=== PATIENT | female | born 1955 | race Caucasian/White ===

== ENCOUNTER 2017-01-22 11:32 | Inpatient (IN) ==
--- NOTE | 2017-01-19 15:06 | Discharge Summary ---
<Debby Thompson E - Last Filed: 01/19/17 15:04> Date of Encounter: 01/19/17 - Discharge Diagnosis (1) Arthritis of knee, right Priority: Primary Status: Chronic (2) Rheumatoid arthritis Status: Chronic Qualifiers: Rheumatoid arthritis location: unspecified site Rheumatoid factor presence : unspecified presence Qualified Code(s): M06.9 - Rheumatoid arthritis, unspecified (3) Hypertension Priority: Secondary Status: Chronic Qualifiers: Hypertension type: essential hypertension Qualified Code(s): I10 - Essential (primary) hypertension (4) Vertigo Priority: Secondary Status: Chronic - Discharge Medications Prescriptions: Alprazolam [Xanax 1 MG Tablet] 1 mg PO DAILY #20 tablet Home Medications: Aspirin Enteric Coated [Aspirin EC] 325 mg PO DAILY #21 tablet. 01/21/17 [Rx] OxyCODONE Immed Rel [Roxicodone 5 MG] 5 - 10 mg PO Q6HR PRN #40 tablet 01/21/17 [Rx] Cyanocobalamin (B-12) [Vitamin B12] 1,000 mcg IM Q2W 01/22/17 [History] Lisinopril/Hydrochlorothiazide [Zestoretic 10-12.5 mg Tablet] 1 each PO DAILY [History] Loratadine/Pseudophed (12 HR) [Claritin D (12HR)] 1 each PO DAILY 01/22/17 [ History] Meclizine HCl [Verticalm] 25 mg PO DAILY 01/22/17 [History] Alprazolam [Xanax 1 MG Tablet] 1 mg PO DAILY #20 tablet 01/24/17 [Rx] Allergies/Adverse Reactions: Allergies Amoxicillin Adverse Reaction (Verified 01/22/17 13:07) hives,itching Primary care physician: JAMARI Sol - Patient Status Disposition: Transfer Inpatient Rehab Fac Condition: Good - Discharge Instructions Follow Up With: Harris Landa MD [Partnered Physician] - 02/20/17 9:20 am Mitzi Fournier PAC [Physician Science Teacher] - 02/01/17 11:15 am Taylor Pat CNP [Primary Care Provider] - Additional Instructions: Discharge Instructions: Total Knee Replacement Please call [facility] ([phone]), your Primary Care Physician, or report to the Emergency Room if you have any of the following symptoms: Nausea, vomiting, fever greater that 101.5, swelling, chest pain, shortness of breath, increased pain/redness/drainage/odor for your incision site, numbness/ tingling, or any other concerning symptoms. ACTIVITY:Weight-bearing as tolerated. You may progress off support (cruthches or walker) as tolerated. MEDICATIONS: Upon discharge resume your home medications. Take all the medications as prescribed. Take a stool softener if taking narcotic pain medications. Stool softeners are only effective if you drink enough fluids. Drink 6-8 glass of water or fluids a day, unless this is not allowed for another health problem. Despite using stool softeners, if you haven't had a bowel movement in 3 days, please switch to a gentle laxative. Gentle laxatives are sold over the counter. You should have a bowel movement within 24 hours, if not call the office. You will be discharged from the hospital with a prescription for pain medication. You are encouraged to decrease the use of narcotic pain medication as tolerated. Should you require a refill, please call the office. [facility] prescribes narcotic pain medication for only 4-6 weeks after surgery. If you require pain medication beyond this time periord, you may be referred to your Primary Care Physician or to the Pain Clinic for further evaluation. Plan ahead for refills on pain medication as many narcotics either need to be picked up at the office or mailed. It is best to call 48-72 hours in advance of needing a prescription refill so you don't run out of medication. To help control the post-operative pain, you may take NSAIDs (Aleve,Advil, Motrin, ibuprofen, naprosyn) or Tylenol as prescribed on the bottle in addition to the pain medication. ANTICOAGULATION (blood thinners): Continue your Aspirin, Lovenox or Coumadin as prescribed to help prevent a blood clot in the leg or in the lungs. As long as your incision remains dry and you tolerate the NSAIDs (Aleve, Advil, Motrin, ibuprofen, naprosyn), it is OK to use the NSAIDS while you are taking your anticoagulation medication. Should your incision start to drain, stop the NSAID and contact our office. Common symptoms of blood clot in the legs include: localized pain, swelling, calf tenderness, redness or discoloration of the skin. Blood clot in the lung symptoms include: shortness of breath, rapid pulse, sweating, and chest pain that worsens with deep breathing, coughing up blood, lightheadedness, feelings of anxiety. If you experience any of these symptoms notify your physician immediately, go to the emergency room, or if having trouble breathing, call 911. WOUND CARE: Leave the dressing on for 7 days. You may change the dressing if it becomes saturated greater than 50%. You can shower but not a tub bath or submerge your incision in water. Wash your hands with antibacterial soap, rinse and dry prior to any wound care. If you have tim the visiting nurse or rehab facility can remove the stapes 10-14 days after surgery [address] place steri- strips across the wound. Leave the steri-strips in place until they fall off on their won. You may let water from the shower run on top of the steri-stirips. If you do not have a visiting nurse or rehab facility, you will need to return to the office at 10-14 days for the tim to be removed. FOLLOW-UP: Please follow up with your surgeon in the orthopedic clinic in 4 weeks from the day of surgery. If you have tim that need to be removed, you will need to come back to the office in 10-14 days from the day of surgery. - Hospital Course Hospital course: Ms. Knox is a 61 year old female - Time Spent with Patient Total time spent providing and/or coordinating discharge services: <Mitzi Fournier - Last Filed: 01/21/17 21:43> Date of Encounter: 01/21/17 Primary care physician: JAMARI Sol - Hospital Course Hospital course: Ms. Knox is a 61 year old female - Time Spent with Patient Total time spent providing and/or coordinating discharge services: <Harris Landa - Last Filed: 01/24/17 06:25> Date of Encounter: 01/24/17 Time of Encounter: 06:23 - Discharge Diagnosis (1) Arthritis of knee, right Priority: Primary Status: Acute (2) Rheumatoid arthritis Priority: Primary Status: Chronic Qualifiers: Rheumatoid arthritis location: unspecified site Rheumatoid factor presence : unspecified presence Qualified Code(s): M06.9 - Rheumatoid arthritis, unspecified (3) Hypertension Priority: Secondary Status: Chronic Qualifiers: Hypertension type: essential hypertension Qualified Code(s): I10 - Essential (primary) hypertension (4) Vertigo Priority: Secondary Status: Chronic Primary care physician: JAMARI Sol - Patient Status Functional capacity at discharge: uses cane/walker Overall status at discharge: patient is back to baseline - Hospital Course Hospital course: Ms. Knox is a 61 year old female patient doing well received antibiotics and PT asa dvt prophylaxis - Time Spent with Patient Total time spent providing and/or coordinating discharge services:
--- NOTE | 2017-01-22 11:37 | History & Physical Report ---
Date of Encounter: 01/22/17 Time of Encounter: 11:36 24 Hour HP Update - Instructions Instructions: If the History and Physical is less than 30 days old and was completed prior to A.M. admission and or procedure and has NOT been updated on calendar day of procedure please complete this update prior to performing procedure. - Update Patient reports changes in Medical Condition: No Changes in examination, assessment, or condition: No Changes in Medication: No Preop tests/diagnostics Reviewed: Yes Surgery Remains Indicated: Yes Consent for Planned Operative Procedure(s) Verified: Yes - Pre-Operative Checklist Preoperative Checklist Indicated: No Prophylactic Antibiotic Ordered: Yes Is VTE Prophylaxis Indicated?: Yes
[2017-01-22] MEDS ORDERED: CeFAZolin Pre 2,000 MG/100 ML 2,000 MG/100 ML BAG IVPB ONE (11:56)
[2017-01-22] MEDS ORDERED: Ringers Solution, Lactated 1,000 ML IVC SCH ×2 (12:00→14:00)
[2017-01-22] MEDS ORDERED: Famotidine 20 MG/2 ML VIAL IVP ONE (12:22)
[2017-01-22] MEDS ORDERED: Dexamethasone 4 MG/ML VIAL ONE (12:46)
[2017-01-22] MEDS ORDERED: Ondansetron 4 MG/2 ML VIAL ONE (12:46)
[2017-01-22] MEDS ORDERED: Lidocaine -MPF 2% 2 ML VIAL ONE (12:46)
[2017-01-22] MEDS ORDERED: *HR* Succinylcholine 200 MG/10 ML VIAL IVP ONE (12:46)
[2017-01-22] MEDS ORDERED: *HR* Midazolam HCl 2 MG/2 ML VIAL ONE (12:47)
[2017-01-22] MEDS ORDERED: *HR* FentaNYL (PF) 100 MCG/2 ML VIAL ONE (12:47)
[2017-01-22] MEDS ORDERED: *HR* Propofol 200 MG/20 ML VIAL IVP ONE (12:47)
--- NOTE | 2017-01-22 13:02 | Anesthesia Evaluation PreOp ---
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 01/21/17 [Rx] OxyCODONE Immed Rel [Roxicodone 5 MG] 5 - 10 mg PO Q6HR PRN #40 tablet 01/21/17 [Rx] Allergies Amoxicillin Adverse Reaction (Unverified 01/16/17 15:42) See Comments - Meds/Allergy Pre-op Review Medications Reviewed: Yes Allergies Reviewed: Yes Beta Blockers on Current Med List: No Anesthesia Results - Labs Laboratory Tests 01/16/17 01/16/17 15:43 15:43 Hgb 14.5 Hct 43.0 Plt Count 281 Sodium 138 Potassium 3.7 BUN 14 Creatinine 0.74 - Imaging EKG: report reviewed (SR) Anesthesia Exam O2 Sat Height 1.56 m Height 1.56 m Height 1.56 m Height 1.56 m Weight 66.678 kg Weight 66.678 kg Weight 66.678 kg Weight 66.678 kg O2 Sat by Pulse Oximetry 95 O2 Sat by Pulse Oximetry 95 O2 Sat by Pulse Oximetry 95 Vital Signs Temp Pulse Resp BP Pulse Ox 98.8 F 91 18 159/108 95 01/22/17 11:57 01/22/17 11:57 01/22/17 11:57 01/22/17 11:57 01/22/17 11:57 Height: 5'3 Weight: 148 lbs NPO (# of Hours): MN Pain Scale: 0 - HEENT Pupil (Motor): Pupils equal, EOMI Mallampati: II Teeth: Normal Oral Opening: Greater than 3 - COOK HOUSE SUPERVISOR LOC: Oriented [employer] HOUSE SUPERVISOR Motor: Normal RUE, Normal LUE, Normal RLE, Normal LLE, Normal Face [employer] HOUSE SUPERVISOR Sensory: Normal: RUE, LUE, RLE, LLE, Face - Cardiac Rhythm: Regular Murmur: None JVD: No Carotid Bruit: No - Pulmonary Breath Sounds: bilateral Clear Respiratory Effort: Symmetrical Anesthesia Assess/Plan ASA Score: 2 Modified Austin Scale for Level of Consciousness: Cooperative, oriented, and tranquil Anesthetic Plan: General, Regional Monitoring Plan: Standard Monitors Recovery Plan: PACU (Discussed GA and RA, agrees to proceed)
[2017-01-22] MEDS ORDERED: ROPIVACAINE HCL/PF 0.5% 30 ML VIAL ONE ×2 (13:28→13:47)
[2017-01-22] MEDS ORDERED: Tetracaine/PF 20 MG/2 ML AMPUL SPINA ONE (13:28)
[2017-01-22] MEDS ORDERED: Ondansetron 4 MG/2 ML VIAL IVP ONE (14:00)
[2017-01-22] MEDS ORDERED: Dexamethasone 4 MG/ML VIAL IVP ONE (14:00)
[2017-01-22] MEDS ORDERED: *HR* HYDROmorphone (PF) 1 MG/ML SYRINGE IVP PRN ×2 (14:00→15:59)
--- NOTE | 2017-01-22 14:00 | Anesthesia Procedures ---
Date of Encounter: 01/22/17 Time of Encounter: 13:58 Procedures: Anesthesia - Nerve Block Procedure Date: 01/22/17 Time: 13:58 Allergies/Adv Reactions: amoxicillin Pre-op Diagnosis: right knee arthritis Surgical Procedure: Right total knee arthroplasty Checklist: Correct Patient Identifier, Correct procedure, History checked Correct side: Right Blood Thinner: No Monitor Applied: EKG, BP, Pulse Oximetry Supplemental Oxygen via Nasal Cannula (L/min): 2 Sedation: Versed (mg): 2 Sedation: Fentanyl (mcg): 100 Indication: Post Op Analgesia Pre-op Neuro Deficits: No Block Type: Femoral, Other (IPAC) Catheter placed: No Sterile Technique: Yes Ultrasound used: Yes Anatomy identified: Yes Visual spread of Local: Yes Neuro Stimulation: Yes Nerve Stimulator Range: 0.2 - 0.4 mA Blood on Needle Aspiration: No Smooth Injection of Local: Yes Pain with Injection of Local: No Prep: Chlorhexadine Needle: 22 x 50 mm Stimuplex Local: 0.25% Bupivicaine w/Clonidine 20 mcg/cc, Ropivacaine Volume (cc): 30 Number of Attempts: 1 Complications: None/effective block Vitals: Vital Signs Temperature 98.8 F 01/22/17 11:57 Pulse Rate 91 01/22/17 11:57 Respiratory Rate 18 01/22/17 11:57 Blood Pressure 159/108 01/22/17 11:57 O2 Sat by Pulse Oximetry 95 01/22/17 11:57 Temperature 98.8 F 01/22/17 12:10 Pulse Rate 62 01/22/17 13:56 Respiratory Rate 16 01/22/17 13:56 Blood Pressure 143/90 01/22/17 13:56 O2 Sat by Pulse Oximetry 100 01/22/17 13:56 Comments: Femoral block with ropivicaine 0.5% 30ml, IPAC 20ml bupivicaine 0.25% with clonidine.
--- NOTE | 2017-01-22 14:58 | Orthopedic Operative Note ---
Date of procedure: 01/22/17 Pre-op diagnosis: Right knee arthritis Post-op diagnosis: same Procedure: Procedure: Right Total knee replacement Estimated blood loss: 200 cc Hardware: Arthrex Femur: 3 Tibia: 3 PS insert: 12 Patella: 34 Exam Under anesthesia: Full flexion full extension no instability Procedural Notes: Grade 3 arthritic changes medial compartment patella femoral joint. Operative procedure: The patient was brought to the operating room and placed on the operating room table. After general anesthesia was administered the operative knee was examined. Findings were noted in the exam under anesthesia. The operative extremity was prepped and draped in sterile surgical fashion. The patient received IV antibiotics prior to skin incision. A standard midline incision was made centered over the patella. The incision was made through the skin and subcutaneous tissue. A medial parapatellar tendon approach was performed. Care was taken to preserve tissue along the medial aspect of the patella. And to protect the patella tendon. The deep MCL was released off the medial tibia. The infra patella fat pad was excised. Knee was brought into flexion. Patient noted to have grade 3 arthritic changes medial compartment patellofemoral joint. The entry hole was made for the intramedullary femoral guide. The guide was seated in 6 degrees of valgus. Anterior cut was made followed by the distal cut. The ACL the PCL the medial and the lateral menisci were excised. The tibia was subluxed forward. The entry hole was made for the intramedullary tibial guide. Guide was seated to resect 2 mm off the more abnormal side. The knee was brought into flexion the distal femur was sized to a 3. The femoral guide was seated, the anterior cut was made followed by the posterior condylar cut, followed by the chamfer cuts. The finishing guide was seated the box cut was made and the lug holes were drilled. The tibia was sized to a 3, the tibial tray was seated and prepared with the large drill followed by the fin cutter. Trial reduction revealed full extension no varus valgus instability with the appropriate 12 PS Ondina. The patella was everted and cut was made at the level of the insertion of the quadriceps and patella tendon. The patella 34 was sized the guide was seated and the lug holes are drilled. Trial reduction revealed excellent patella tracking. All trial components were removed all bony surfaces were irrigated. The tibia was cemented first followed by the femur. The 12 PS Ondina was seated and the knee was brought into full extension. The patella was cemented and held in place with the patellar holding clamp. After the cement had hardened, the knee sat for 2 minutes with a Betadine saline solution. The knee was then irrigated out with 2 L of pulse irrigation. The extensor mechanism was closed with #2 FiberWire suture and #2 PDS suture. The subcutaneous tissue was then irrigated and closed deep with #1 PDS suture superficially with 0 PDS suture and skin was closed with skin tim. The patient was then placed in a sterile dressing and a postoperative brace extubated and transferred to recovery room in stable condition. Anesthesia: ALBERTA Surgeon: Harris Landa Customs Officer: Mitzi Fournier Condition: stable Disposition: PACU
[2017-01-22] MEDS ORDERED: Ketorolac 30 MG/ML VIAL ONE (15:04)
[2017-01-22] MEDS ORDERED: *HR* HYDROmorphone 2 MG/ML SYRINGE ONE (15:22)
[2017-01-22 15:57] LABS: Hematocrit 36.1 % (35.3-44.9)
[2017-01-22] MEDS ORDERED: Ondansetron 4 MG/2 ML VIAL IVP PRN (15:59)
[2017-01-22] MEDS ORDERED: Temazepam 15 MG CAPSULE PO PRN (15:59)
[2017-01-22] MEDS ORDERED: MOM Conc 10 ML UD.LIQ PO PRN (15:59)
[2017-01-22] MEDS ORDERED: Sennosides 8.6 MG TABLET PO PRN (15:59)
[2017-01-22] MEDS ORDERED: *HR* OxyCODONE Immed Rel 5 MG TABLET PO PRN (15:59)
[2017-01-22] MEDS ORDERED: Acetaminophen 325 MG TABLET PO PRN (15:59)
[2017-01-22] MEDS ORDERED: Naloxone 0.4 MG/ML INJ IVP PRN (15:59)
[2017-01-22] MEDS ORDERED: Cyanocobalamin (B-12) 1,000 MCG/ML VIAL IM SCH (15:59)
[2017-01-22 16:02] LABS: Hemoglobin 11.8 g/dL (11.5-15.4)
[2017-01-22] MEDS: *HR* Enoxaparin 30 MG/0.3 ML SYRINGE SQ SCH (17:39)
[2017-01-22] MEDS ORDERED: *HR* Enoxaparin 30 MG/0.3 ML SYRINGE SQ SCH (18:00)
--- NOTE | 2017-01-22 19:06 | Anesthesia Evaluation Post Op ---
Date of Encounter: 01/22/17 Time of Encounter: 17:00 - Vital Signs Vital Signs: Vital Signs/O2 Sat/Glucose, Most Current Temp Pulse Resp BP Pulse Ox 01/22/17 17:27 97.9 F 61 12 129/83 96 01/22/17 17:00 59 12 128/79 100 01/22/17 16:12 97.5 F L 56 12 114/71 98 01/22/17 15:57 97.3 F L 56 14 115/78 98 01/22/17 15:47 59 14 111/85 99 01/22/17 15:37 65 14 122/76 99 01/22/17 15:27 97.0 F L 65 20 106/69 100 - Lungs Lungs: Clear Ascult./Percussion - Airway Airway: Non-obstructed - Cardiovascular Regular Rate - Mental Status Mental Status: Alert & Oriented, Answers Appropriately - Pain Pain Scale: 0 - Nausea Vomiting Nausea Vomiting: Not Present - Hydration Hydration: Ice chips - Discharge PostOp Status: Transfer Patient to floor
[2017-01-22] MEDS: *HR* OxyCODONE Immed Rel 5 MG TABLET PO PRN (20:20)
[2017-01-22] MEDS: ceFAZolin 2,000 MG in D5% in Water 100 ML IVPB SCH ×2 (21:09→23:33)
[2017-01-22] MEDS: Ringers Solution, Lactated 1,000 ML IVC SCH (21:28)
[2017-01-23] MEDS: *HR* OxyCODONE Immed Rel 5 MG TABLET PO PRN ×4 (03:59→21:09)
[2017-01-23] MEDS: *HR* Enoxaparin 30 MG/0.3 ML SYRINGE SQ SCH ×2 (05:23→16:02)
--- NOTE | 2017-01-23 06:52 | Orthopedics Progress Note ---
Date of Encounter: 01/23/17 Time of Encounter: 06:52 - Assessment and Plan (1) Arthritis of knee, right Current Visit: Yes Status: Acute (2) Rheumatoid arthritis Current Visit: Yes Status: Chronic Qualifiers: Rheumatoid arthritis location: unspecified site Rheumatoid factor presence : unspecified presence Qualified Code(s): M06.9 - Rheumatoid arthritis, unspecified (3) Hypertension Current Visit: Yes Status: Chronic Qualifiers: Hypertension type: essential hypertension Qualified Code(s): I10 - Essential (primary) hypertension (4) Vertigo Current Visit: Yes Status: Chronic Subjective Interval history: Patient was seen this morning doing well without complaints. Afebrile vital signs stable. Operative extremity: Neurovascularly intact Dressing clean dry and intact Calves nontender Assessment and plan: Continue with postoperative care Hematocrit 36 Objective Vital signs: Vital Signs Temp Pulse Resp BP Pulse Ox 01/23/17 06:37 98.7 F 87 18 124/77 94 01/23/17 04:00 98.0 F 65 18 134/83 98 01/23/17 00:00 97.8 F 61 16 121/81 97 01/22/17 20:00 98.0 F 63 18 125/80 97 01/22/17 17:27 97.9 F 61 12 129/83 96 01/22/17 17:00 59 12 128/79 100 01/22/17 16:12 97.5 F L 56 12 114/71 98 01/22/17 15:57 97.3 F L 56 14 115/78 98 01/22/17 15:47 59 14 111/85 99 01/22/17 15:37 65 14 122/76 99 01/22/17 15:27 97.0 F L 65 20 106/69 100 01/22/17 13:56 62 16 143/90 100 01/22/17 13:42 79 16 179/107 100 01/22/17 12:10 98.8 F 91 18 159/108 95 01/22/17 12:06 98.8 F 91 18 159/108 95 01/22/17 11:57 98.8 F 91 18 159/108 95 Intake and Output 01/22/17 01/22/17 01/23/17 15:59 23:59 07:59 Intake Total 400 / 400 Output Total 100 / 100 400 / 400 Balance -100 / -100 400 / 400 -400 / -400 Intake: IV Fluids 100 / 100 Ancef 2,000 MG In 100 / 100 Dextrose 5% 100 ML @ 200 mls/hr IVPB Q8HR [facility] Rx#: [id number] Oral 300 / 300 Output: Urine 400 / 400 Estimated Blood Loss 100 / 100 Other: Weight 66.678 kg - Labs CBC & BMP: 01/22/17 15:44 - VTE Documentation of Mechanical Device: Venous foot pump, device Consult Discharge Plan - Plan Referrals: Taylor Pat PRODUCT DEVELOPMENT CHEMIST [Primary Care Provider] -
[2017-01-23 07:04] LABS: Hematocrit 34.2 % (35.3-44.9); Hemoglobin 11.5 g/dL (11.5-15.4)
[2017-01-23 07:21] LABS: BUN/Creatinine Ratio 18 (6-26); Blood Urea Nitrogen 13 mg/dL (7-20); Calcium 8.9 mg/dL (8.6-10.8); Carbon Dioxide 22 mEq/L (19-29); Chloride 105 mEq/L (98-109); Glucose 128 mg/dL (70-99); Osmolality,Calculated 286 (280-300); Potassium 3.6 mEq/L (3.5-4.5); Sodium 137 mEq/L (136-145); eGFR For African Americans > 60 (> 60); eGFR For Non-African Americans > 60 (> 60)
[2017-01-23] MEDS: Loratadine/Pseudophed (12 HR) 1 EACH TABLET PO SCH (08:52)
[2017-01-23] MEDS: ALPRAZolam 1 MG TABLET PO SCH (08:52)
[2017-01-23] MEDS: Ringers Solution, Lactated 1,000 ML IVC SCH (08:53)
[2017-01-24] MEDS: *HR* OxyCODONE Immed Rel 5 MG TABLET PO PRN (04:07)
[2017-01-24] MEDS: *HR* Enoxaparin 30 MG/0.3 ML SYRINGE SQ SCH (05:09)
--- NOTE | 2017-01-24 06:25 | Orthopedics Progress Note ---
Date of Encounter: 01/24/17 Time of Encounter: 06:25 - Assessment and Plan (1) Arthritis of knee, right Current Visit: Yes Status: Acute (2) Rheumatoid arthritis Current Visit: Yes Status: Chronic Qualifiers: Rheumatoid arthritis location: unspecified site Rheumatoid factor presence : unspecified presence Qualified Code(s): M06.9 - Rheumatoid arthritis, unspecified (3) Hypertension Current Visit: Yes Status: Chronic Qualifiers: Hypertension type: essential hypertension Qualified Code(s): I10 - Essential (primary) hypertension (4) Vertigo Current Visit: Yes Status: Chronic Subjective Interval history: Patient was seen this morning doing well without complaints. Afebrile vital signs stable. Operative extremity: Neurovascularly intact Dressing clean dry and intact Calves nontender Assessment and plan: Continue with postoperative care Hematocrit 34 dc today Objective Vital signs: Vital Signs Temp Pulse Resp BP Pulse Ox 01/24/17 04:31 99.3 F 102 16 160/96 97 01/24/17 00:31 99.5 F 103 17 152/93 95 01/23/17 19:58 100.3 F H 112 16 154/83 96 01/23/17 15:49 100.0 F H 90 18 151/89 98 01/23/17 10:44 98.2 F 91 18 136/82 94 01/23/17 07:31 94 01/23/17 06:37 98.7 F 87 18 124/77 94 Intake and Output 01/23/17 01/23/17 01/24/17 15:59 23:59 07:59 Intake Total 720 / 720 Output Total 700 / 700 400 / 400 400 / 400 Balance 20 / 20 -400 / -400 -400 / -400 Intake: Oral 720 / 720 Output: Urine 700 / 700 400 / 400 400 / 400 Other: Meal Lunch Percent of Meal Consumed 100% - Labs CBC & BMP: 01/23/17 06:18 01/23/17 06:18 Labs: Abnormal lab results Hct 34.2 % (35.3-44.9) L 01/23/17 06:18 Glucose 128 mg/dL (70-99) H 01/23/17 06:18 - VTE Documentation of Mechanical Device: Venous foot pump, device Consult Discharge Plan - Plan Additional Instructions: Discharge Instructions: Total Knee Replacement Please call [facility] ([phone]), your Primary Care Physician, or report to the Emergency Room if you have any of the following symptoms: Nausea, vomiting, fever greater that 101.5, swelling, chest pain, shortness of breath, increased pain/redness/drainage/odor for your incision site, numbness/ tingling, or any other concerning symptoms. ACTIVITY:Weight-bearing as tolerated. You may progress off support (cruthches or walker) as tolerated. MEDICATIONS: Upon discharge resume your home medications. Take all the medications as prescribed. Take a stool softener if taking narcotic pain medications. Stool softeners are only effective if you drink enough fluids. Drink 6-8 glass of water or fluids a day, unless this is not allowed for another health problem. Despite using stool softeners, if you haven't had a bowel movement in 3 days, please switch to a gentle laxative. Gentle laxatives are sold over the counter. You should have a bowel movement within 24 hours, if not call the office. You will be discharged from the hospital with a prescription for pain medication. You are encouraged to decrease the use of narcotic pain medication as tolerated. Should you require a refill, please call the office. [facility] prescribes narcotic pain medication for only 4-6 weeks after surgery. If you require pain medication beyond this time periord, you may be referred to your Primary Care Physician or to the Pain Clinic for further evaluation. Plan ahead for refills on pain medication as many narcotics either need to be picked up at the office or mailed. It is best to call 48-72 hours in advance of needing a prescription refill so you don't run out of medication. To help control the post-operative pain, you may take NSAIDs (Aleve,Advil, Motrin, ibuprofen, naprosyn) or Tylenol as prescribed on the bottle in addition to the pain medication. ANTICOAGULATION (blood thinners): Continue your Aspirin, Lovenox or Coumadin as prescribed to help prevent a blood clot in the leg or in the lungs. As long as your incision remains dry and you tolerate the NSAIDs (Aleve, Advil, Motrin, ibuprofen, naprosyn), it is OK to use the NSAIDS while you are taking your anticoagulation medication. Should your incision start to drain, stop the NSAID and contact our office. Common symptoms of blood clot in the legs include: localized pain, swelling, calf tenderness, redness or discoloration of the skin. Blood clot in the lung symptoms include: shortness of breath, rapid pulse, sweating, and chest pain that worsens with deep breathing, coughing up blood, lightheadedness, feelings of anxiety. If you experience any of these symptoms notify your physician immediately, go to the emergency room, or if having trouble breathing, call 911. WOUND CARE: Leave the dressing on for 7 days. You may change the dressing if it becomes saturated greater than 50%. You can shower but not a tub bath or submerge your incision in water. Wash your hands with antibacterial soap, rinse and dry prior to any wound care. If you have tim the visiting nurse or rehab facility can remove the stapes 10-14 days [address] surgery [address] steri- strips across the wound. Leave the steri-strips in place until they fall off on their won. You may let water from the shower run on top of the steri-stirips. If you do not have a visiting nurse or rehab facility, you will need to return to the office at 10-14 days for the tim to be removed. FOLLOW-UP: Please follow up with your surgeon in the orthopedic clinic in 4 weeks from the day of surgery. If you have tim that need to be removed, you will need to come back to the office in 10-14 days from the day of surgery. Referrals: Harris Landa MD [Partnered Physician] - 02/20/17 9:20 am Mitzi Fournier PAC [Physician Interactive Media Marketing Director] - 02/01/17 11:15 am Taylor Pat CNP [Primary Care Provider] - Prescriptions: Alprazolam [Xanax 1 MG Tablet] 1 mg PO DAILY #20 tablet
[2017-01-24 06:46] LABS: Hematocrit 33.5 % (35.3-44.9); Hemoglobin 11.3 g/dL (11.5-15.4)
[2017-01-24 07:03] VITALS: BP 134/87
[2017-01-24 07:03] LABS: BUN/Creatinine Ratio 12 (6-26); Blood Urea Nitrogen 8 mg/dL (7-20); Calcium 8.6 mg/dL (8.6-10.8); Carbon Dioxide 24 mEq/L (19-29); Chloride 100 mEq/L (98-109); Glucose 115 mg/dL (70-99); Osmolality,Calculated 275 (280-300); Potassium 3.3 mEq/L (3.5-4.5); Sodium 133 mEq/L (136-145); eGFR For African Americans > 60 (> 60); eGFR For Non-African Americans > 60 (> 60)
[2017-01-24] MEDS: Loratadine/Pseudophed (12 HR) 1 EACH TABLET PO SCH (08:25)
[2017-01-24] MEDS: ALPRAZolam 1 MG TABLET PO SCH (08:26)
== END 2017-01-24 11:10 | DRG 470 ==
LOC: SAMDAY 11:32 → 3NENU 16:04
PROVIDERS: ADMIT Orthopaedic Surgery; ATTEND Orthopaedic Surgery